=== PATIENT | male | born 1975 | race Caucasian/White ===

== ENCOUNTER 2023-09-29 17:34 | Emergency (ER) | payer OTHER ==
[2023-09-29] MEDS: diphenhydrAMINE 50 MG Cap PO ONE (18:33)
[2023-09-29] MEDS: predniSONE 20 MG Tab PO ONE (18:33)
[2023-09-29] MEDS: Famotidine 20 MG Tab PO ONE (18:34)
== END 2023-09-29 18:58 | disposition home or self-care (01) ==
LOC: FB.ED 17:34
DX: L08.9 Local infection of the skin and subcutaneous tissue, unspecified (principal); B96.89 Other specified bacterial agents as the cause of diseases classified elsewhere; T46.1X5A Adverse effect of calcium-channel blockers, initial encounter; I10 Essential (primary) hypertension; K21.9 Gastro-esophageal reflux disease without esophagitis; Z88.1 Allergy status to other antibiotic agents; Z91.040 Latex allergy status; Z88.8 Allergy status to other drugs, medicaments and biological substances; Z79.899 Other long term (current) drug therapy
CPT/HCPCS: 99282; 99284; A9270-GY; J7512